=== PATIENT | female | born 1985 | race Caucasian/White ===

== ENCOUNTER 2016-06-17 07:58 | Emergency (ER) | payer OTHER ==
[2016-06-17 08:13] VITALS: BP 119/70; PULSE 87; TEMP 97.5; BMI 30.2
[2016-06-17] MEDS ORDERED: OXYCODONE/APAP 5/325MG COMBO TABLET ONE (08:21)
[2016-06-17] MEDS ORDERED: OXYCODONE/APAP 5/325MG COMBO TABLET PO ONE (08:30)
--- NOTE | 2016-06-17 08:35 | PDOC ---
History of Present Illness - General Chief Complaint: Wound Infection Stated Complaint: OPEN INCISION Time Seen by Provider: 06/17/16 08:10 History Source: Patient - History of Present Illness Initial Comments: 06/17/16 08:42 30-year-old female presents to the ED for evaluation of incisional pain since her on the accompanied with an opened area to the right side of her incision since [place] were removed on Sunday by Dr. Salmeron. Patient states this is a third and was told that this area will take a little while to heal up and not to be concern but patient felt concerned when the estella removed on Sunday and the drainage was noted morning. Patient states has had no fever, chills, purulent drainage, redness or increased pain since but states the Motrin is not helping the discomfort and told the DIRECTOR OF COLLECTIONS that she needed stronger meds on Sunday but was told to alternate with Tylenol if need be. Patient has no diabetes or immunosuppression. Timing/Duration: reports: constant Severity: Yes: mild Location: reports: none (c- section) Respiratory Risk Factors: reports: no cause identified Associated Symptoms: denies: edema, paresthesia, swelling/mass/lumps Past History - Past Medical History Allergies/Adverse Reactions: Allergies Allergy/AdvReac Type Severity Reaction Status Date / Time morphine Allergy Intermediate Itching Verified 06/17/16 08:05 Home Medications: Ambulatory Orders Ferrous Sulfate [Feosol] 325 mg PO DAILY 01/20/16 Vitamins (Sjr) - 1 tab PO DAILY tablet 05/01/16 Ibuprofen [Motrin -] 600 mg PO QID #28 tablet 06/07/16 Asthma: No Cancer: No Cardiac Disorders: No Diabetes: No HTN: No Suicide Attempt (Hx): No Seizures: No Thyroid Disease: No - Psycho/Social/Smoking Cessation Hx Suicidal Ideation: No Smoking Status: Yes Smoking History: Current every day smoker Have you smoked in the past 12 months: No Number of Cigarettes Smoked Daily: 1 Information on smoking cessation initiated: Yes 'Breaking Loose' booklet given: 06/17/16 Hx Alcohol Use: No Drug/Substance Use Hx: No Substance Use Type: None Hx Substance Use Treatment: No Patient Lives Alone: No Lives with/in: parents Review of Systems - Review of Systems Able to Perform ROS?: Yes Constitutional: No: Symptoms Reported HEENTM: No: Symptoms Reported Cardiac (ROS): No: Symptoms Reported ABD/GI: No: Symptoms Reported Musculoskeletal: No: Symptoms Reported Integumentary: Yes: Other (partially opened ) Neurological: No: Symptoms reported Endocrine: No: Symptoms Reported Hematologic/Lymphatic: No: Symptoms Reported *Physical Exam - Vital Signs Last Vital Signs Temp Pulse Resp BP Pulse Ox 97.5 F L 87 18 119/70 99 06/17/16 08:03 06/17/16 08:03 06/17/16 08:03 06/17/16 08:03 06/17/16 08:03 - Physical Exam General Appearance: Yes: Nourished, Appropriately Dressed. No: Apparent Distress Gastrointestinal/Abdominal: positive: Soft, Other (Noted 2 cm opened pink epithelial surgical incision to the right aspect of incision. Minimal serosanguineous fluid noted on Steri-Strips. No palpable fluctuance no edema no increased warmth, and no erythema.). negative: Distended, Tenderness Extremity: positive: Normal Capillary Refill. negative: Pedal Edema Medical Decision Making - Medical Decision Making 06/17/16 08:44 patient status post on the complaining of a discomfort and an open area to the right side since [place] were removed on Sunday. Patient denies increased exertion but states was told to walk around which she has been doing. Patient states has been taking Motrin with minimal effect and actually took a Tylenol with Motrin last night with no effect so decided come to the ER for further evaluation. Patient on exam had pink epitheal tissue with serosanguineous fluid noted on Steri-Strips. Area was cleansed with normal saline and reapplied new Steri- Strip to area. Patient also be given 6 tablets of Percocet for pain. Patient recommended to contact DIRECTOR OF COLLECTIONS on Sunday to discuss today's visit or return to ED if symptoms worsen *DC/Admit/Observation/Transfer Diagnosis at time of Disposition: Incisional pain - Discharge Dispostion Disposition: HOME Condition at time of disposition: Good - Patient Instructions Printed Discharge Instructions: How to Care for a Surgical Wound Additional Instructions: Area clean and dry and avoid wearing polyester underwear only wearing cotton underwear to allow ventilation. Please avoid exertional movement as this may irritate the incision. Try to rest and take Motrin/Percocet as needed for discomfort. Please call your DIRECTOR OF [employer]LECTIONS Sunday to discuss today's visit. Otherwise return to ED if symptoms worsen.
--- NOTE | 2016-06-17 08:59 | PDOC ---
*Physical Exam - Vital Signs Last Vital Signs Temp Pulse Resp BP Pulse Ox 97.5 F L 87 18 119/70 99 06/17/16 08:03 06/17/16 08:03 06/17/16 08:03 06/17/16 08:03 06/17/16 08:03 - Physical Exam Comments: 06/17/16 08:58 The patient was examined by [KHARI Benites] under my direct supervision. I personally evaluated the patient. I concur with the above findings and the plan of care. ED Treatment Course - Medications Given in the ED: ED Medications Discontinued Medications Generic Name Dose Route Start Last Admin Trade Name Freq PRN Reason Stop Dose Admin Oxycodone/Acetaminophen 1 combo 06/17/16 08:30 06/17/16 08:30 Percocet 5/325 - PO 06/17/16 08:31 1 combo ONCE ONE Administration *DC/Admit/Observation/Transfer Diagnosis at time of Disposition: Incisional pain - Discharge Dispostion Disposition: HOME Condition at time of disposition: Good - Prescriptions Prescriptions: Oxycodone HCl/Acetaminophen [Percocet 5-325 mg Tablet] 1 - 2 tab PO Q6H PRN #6 tab MDD 4 PRN Reason: Pain - Referrals - Patient Instructions Printed Discharge Instructions: How to Care for a Surgical Wound Additional Instructions: Area clean and dry and avoid wearing polyester underwear only wearing cotton underwear to allow ventilation. Please avoid exertional movement as this may irritate the incision. Try to rest and take Motrin/Percocet as needed for discomfort. Please call your [employer] Sunday to discuss today's visit. Otherwise return to ED if symptoms worsen. - Post Discharge Activity
== END 2016-06-17 09:06 | disposition home or self-care (01) ==
LOC: JER 07:58
DX: O90.0 Disruption of cesarean delivery wound (principal)
CPT/HCPCS: 99281-25